=== PATIENT | male | born 1975 | race Caucasian/White ===

== ENCOUNTER 2022-08-09 02:48 | Emergency (ER) | payer BC ==
[2022-08-09] MEDS ORDERED: Diphtheria,Pertussis(Acell),Tetanus Vaccine 0.5 ML Syringe IM ONE (02:58)
[2022-08-09] MEDS ORDERED: Acetaminophen 500 MG Tab PO ONE (04:37)
== END 2022-08-09 04:59 ==
LOC: MW.ED 02:48
DX: S62.115A Nondisplaced fracture of triquetrum [cuneiform] bone, left wrist, initial encounter for closed fracture (principal); S02.832A Fracture of medial orbital wall, left side, initial encounter for closed fracture; S02.831A Fracture of medial orbital wall, right side, initial encounter for closed fracture; T74.11XA Adult physical abuse, confirmed, initial encounter; S01.511A Laceration without foreign body of lip, initial encounter; F10.10 Alcohol abuse, uncomplicated; H11.32 Conjunctival hemorrhage, left eye; I10 Essential (primary) hypertension; K21.9 Gastro-esophageal reflux disease without esophagitis; Z79.899 Other long term (current) drug therapy; Y04.0XXA Assault by unarmed brawl or fight, initial encounter
CPT/HCPCS: 29125; 70450; 70486; 72125; 73080; 73110; 82947; 99284; A9270

== ENCOUNTER 2022-09-14 20:49 | Emergency (ER) | payer BC ==
[2022-09-14] MEDS ORDERED: Sodium Chloride 0.9% 1,000 ML IV ONE (21:29)
[2022-09-14] MEDS ORDERED: Acetaminophen 500 MG Tab PO STA (21:30)
[2022-09-14] MEDS ORDERED: Ibuprofen 600 MG Tab PO ONE (21:30)
[2022-09-14 21:55] LABS: CORONAVIRUS COVID-19 NAA NEGATIVE (NEGATIVE); INFLUENZA A NAA POSITIVE (NEGATIVE); INFLUENZA B NAA NEGATIVE (NEGATIVE)
[2022-09-14 22:25] LABS: CARBON DIOXIDE,CO2 27.2 mmol/L (21.0-32.0); POTASSIUM,K 3.4 mmol/L (3.5-5.1)
[2022-09-14] MEDS ORDERED: Oseltamivir 75 MG Cap PO ONE (22:29)
[2022-09-14] MEDS ORDERED: Benzonatate 100 MG Cap PO ONE (22:29)
== END 2022-09-14 23:10 | disposition home or self-care (01) ==
LOC: MW.ED 20:49
DX: J11.1 Influenza due to unidentified influenza virus with other respiratory manifestations (principal); R55 Syncope and collapse; I10 Essential (primary) hypertension; E11.9 Type 2 diabetes mellitus without complications; Z79.899 Other long term (current) drug therapy; Z79.84 Long term (current) use of oral hypoglycemic drugs; Z20.822 Contact with and (suspected) exposure to COVID-19
CPT/HCPCS: 0240U; 36415; 71045; 80053; 84484; 85025; 96360; 99285; A9270; J7030

== ENCOUNTER 2022-12-13 22:00 | Emergency (ER) | payer BC ==
[2022-12-14] MEDS ORDERED: Ketorolac 30 MG/ML SDV IM ONE (00:02)
[2022-12-14 00:12] LABS: CORONAVIRUS COVID-19 NAA NEGATIVE (NEGATIVE); INFLUENZA A NAA NEGATIVE (NEGATIVE); INFLUENZA B NAA NEGATIVE (NEGATIVE); RESPIRATORY SYNCYTIAL VIR NAA NEGATIVE (NEGATIVE)
[2022-12-14] MEDS ORDERED: Dexamethasone 10 MG/ML SDV PO ONE (01:48)
== END 2022-12-14 01:58 | disposition home or self-care (01) ==
LOC: MW.ED 22:00
DX: J06.9 Acute upper respiratory infection, unspecified (principal); E78.00 Pure hypercholesterolemia, unspecified; I10 Essential (primary) hypertension; K21.9 Gastro-esophageal reflux disease without esophagitis; E11.9 Type 2 diabetes mellitus without complications; Z20.822 Contact with and (suspected) exposure to COVID-19; Z72.0 Tobacco use; Z79.899 Other long term (current) drug therapy
CPT/HCPCS: 0241U; 71046; 87651; 96372; 99284; J1885; J8540; 99283

== ENCOUNTER 2023-07-25 09:46 | Emergency (ER) | payer BC ==
[2023-07-25] MEDS ORDERED: Ondansetron 4 MG Tab.DIS PO ONE (10:06)
[2023-07-25] MEDS ORDERED: Acetaminophen/HYDROcodone 325-5 MG Tab PO ONE (10:06)
== END 2023-07-25 11:03 | disposition home or self-care (01) ==
LOC: MW.ED 09:46
DX: S93.401A Sprain of unspecified ligament of right ankle, initial encounter (principal); S20.212A Contusion of left front wall of thorax, initial encounter; I10 Essential (primary) hypertension; K21.9 Gastro-esophageal reflux disease without esophagitis; E11.9 Type 2 diabetes mellitus without complications; Z79.899 Other long term (current) drug therapy; W10.9XXA Fall (on) (from) unspecified stairs and steps, initial encounter
CPT/HCPCS: 73610; 99283; A9270

== ENCOUNTER 2023-09-12 18:57 | Emergency (ER) | payer BC ==
[2023-09-12] MEDS ORDERED: Sodium Chloride 0.9% 10 ML Syringe FLUSH PRN (19:13)
[2023-09-12] MEDS ORDERED: Aspirin 325 MG Tab PO ONE (19:13)
[2023-09-12] MEDS ORDERED: Sodium Chloride 0.9% 2.5 ML Syringe FLUSH PRN (19:13)
[2023-09-12 19:17] LABS: BASE EXCESS VENOUS 3.2 (-2.0-3.0); PH,VENOUS 7.49 (7.31-7.41)
[2023-09-12] MEDS ORDERED: Sodium Chloride 0.9% 2,000 ML IV ONE (19:19)
[2023-09-12 19:24] LABS: BASOPHILS ABSOLUTE AUTO 0.05 K/uL (0.00-0.20); EOSINOPHILS ABSOLUTE AUTO 0.04 K/uL (0.00-0.45); EOSINOPHILS PERCENT AUTO 0.8 % (0.0-6.0); HEMATOCRIT 40.1 % (42.0-52.0); HEMOGLOBIN 14.2 g/dL (14.0-18.0); IMMATURE GRAN ABSOLUTE AUTO 0.03 K/uL (0.00-0.05); IMMATURE GRAN PERCENT AUTO 0.6 % (0.0-0.4); LYMPHOCYTES ABSOLUTE AUTO 0.54 K/uL (1.00-4.80); MEAN CORPUSCULAR HEMOGLOBIN 31.3 pg (28.0-32.0); MEAN CORPUSCULAR HGB CONC 35.4 g/dL (32.0-36.0); MEAN CORPUSCULAR VOLUME 88.5 fL (83.0-99.0); MEAN PLATELET VOLUME 11.5 fL (9.4-12.4); MONOCYTES ABSOLUTE AUTO 0.43 K/uL (0.00-0.80); MONOCYTES PERCENT AUTO 8.8 % (0.0-8.0); NEUTROPHILS ABSOLUTE AUTO 3.82 K/uL (1.80-7.70); NEUTROPHILS PERCENT AUTO 77.8 % (41.0-71.0); RED BLOOD CELL COUNT 4.53 M/uL (4.52-5.90); WHITE BLOOD CELL COUNT,WBC 4.91 K/uL (3.9-11.3)
[2023-09-12 19:48] LABS: PLATELET COUNT,PLT 98 K/uL (150-400)
[2023-09-12 19:52] LABS: A/G RATIO 1.2 (0.9-1.6); ALANINE AMINOTRANSFERASE,ALT 55 IU/L (14-63); ALBUMIN 3.7 g/dL (3.4-5.0); ALKALINE PHOSPHATASE 105 U/L (46-116); ASPARTATE AMNIOTRANSFERASE,AST 24 IU/L (15-37); BILIRUBIN TOTAL 0.4 mg/dL (0.2-1.0); BLOOD UREA NITROGEN,BUN 12 mg/dL (7.0-18.0); CALCIUM 8.8 mg/dL (8.5-10.1); CARBON DIOXIDE,CO2 26.4 mmol/L (21.0-32.0); CHLORIDE,CL 101 mmol/L (98-107); CREATININE 1.1 mg/dL (0.8-1.3); EST CRCL DRUG DOSING (CG) 90.32 mL/min; GLUCOSE RANDOM 95 mg/dL (74-106); LIPASE 41 U/L (16-77); POTASSIUM,K 3.3 mmol/L (3.5-5.1); PROTEIN TOTAL,TP 6.8 g/dL (6.4-8.2); SODIUM,NA 138 mmol/L (136-148)
[2023-09-12 19:53] LABS: ESTIMATED GFR 84 mL/min (>60); ETHANOL BLOOD MEDICAL < 3.0 mg/dL
[2023-09-12 20:14] LABS: CORONAVIRUS COVID-19 NAA NEGATIVE (NEGATIVE); INFLUENZA A NAA NEGATIVE (NEGATIVE); INFLUENZA B NAA NEGATIVE (NEGATIVE); RESPIRATORY SYNCYTIAL VIR NAA NEGATIVE (NEGATIVE)
[2023-09-12 20:43] LABS: AMPHETAMINES SCREEN, URINE NEGATIVE (CUTOFF=500); BARBITURATE SCREEN,URINE NEGATIVE (CUTOFF=200); BENZODIAZEPINES SCREEN,URINE NEGATIVE (CUTOFF=150); BUPRENORPHINE SCREEN,URINE NEGATIVE (CUTOFF=10); METHADONE SCREEN, URINE NEGATIVE (CUTOFF=200); METHAMPHETAMINES SCREEN, URINE NEGATIVE (CUTOFF=500); OXYCODONE SCREEN,URINE NEGATIVE (CUT0FF=100); PCP SCREEN,URINE NEGATIVE (CUTOFF=25); THC SCREEN,URINE 20 NG/ML NEGATIVE (CUTOFF=50)
[2023-09-12] MEDS ORDERED: Diazepam 2 MG Tab PO ONE (20:57)
== END 2023-09-12 22:20 | disposition left against medical advice (07) ==
LOC: MW.ED 18:57
DX: S22.32XA Fracture of one rib, left side, initial encounter for closed fracture (principal); I10 Essential (primary) hypertension; E78.00 Pure hypercholesterolemia, unspecified; K21.9 Gastro-esophageal reflux disease without esophagitis; E11.9 Type 2 diabetes mellitus without complications; Z79.899 Other long term (current) drug therapy; W00.0XXA Fall on same level due to ice and snow, initial encounter
CPT/HCPCS: 0241U; 36415; 71101; 80053; 80305; 80307; 82009; 82803; 82947; 83690; 83880; 84484; 85025; 93005; 96360; 96361; 99285; A9270; J3490; J7030; 93010; 99283